=== PATIENT | male | born 1940 | race Two or more races ===

== ENCOUNTER 2019-05-04 23:01 | Inpatient (IN) | payer MEDICARE, OTHER ==
[~2019-05-04] VITALS: Ht 170.2 cm; Wt 63.5 kg
--- NOTE | 2019-05-04 23:08 | NUR ---
BIBS. AGGRESSIVE BEHAVIOR - HIITING STAFF AND OTHER. THROWING STUFF FOR MEDICAL CLEARANCE. ON 5150 FOR DTS/DTO, GRAVELY DISABLED, pt to bed 13, cooperative with staff, pt on monitor, vss, pending md phillips
--- NOTE | 2019-05-04 23:17 | NUR ---
PT ON A HOLD; 214-B
--- NOTE | 2019-05-04 23:25 | NUR ---
urine collected and labs
[2019-05-04 23:31] LABS: APPEARANCE,URINE Clear (CLEAR); BILIRUBIN,URINE Negative (NEGATIVE); BLOOD, URINE Trace-intact Ery/uL (NEGATIVE); COLOR,URINE Yellow (YELLOW); KETONES,URINE Negative (NEGATIVE); LEUKOCYTE ESTERASE ,URINE Negative (NEGATIVE); NITRITE, URINE Negative (NEGATIVE); PROTEIN,URINE >=300 mg/dl (NEGATIVE); UGLUCOSE Negative (NEGATIVE); UROBILINOGEN,URINE 0.2 EU/dL (0.2)
[2019-05-04 23:35] LABS: BASOPHILS % (AUTO) 0.7 % (0.0-2.0); HEMATOCRIT 37 % (39-51); HEMOGLOBIN 12.3 g/dL (13.5-17.5); LYMPHOCYTES # (AUTO) 1.8 /CMM (0.8-4.8); LYMPHOCYTES % (AUTO) 29.5 % (20.0-44.0); MEAN CORPUSCULAR HGB CONC 33 g/dl (31.0-36.0); MEAN CORPUSCULAR VOLUME 89 fL (80-96); MONOCYTES # (AUTO) 0.3 /CMM (0.1-1.30); MONOCYTES % (AUTO) 5.5 % (2.0-12.0); NEUTROPHILS # (AUTO) 3.6 /CMM (1.8-8.9); NEUTROPHILS % (AUTO) 59.3 % (43.0-81.0); PLATELET COUNT (AUTO) 245 /CMM (150-450); RED BLOOD CELL COUNT(AUTO) 4.14 MIL/uL (4.5-6.0)
[2019-05-04 23:42] LABS: BACTERIA,URINE Rare /HPF (None Seen); SQUAMOUS EPITHELIAL CELL,UR Few /HPF (None Seen); WBC,URINE NONE SEEN /HPF (0-3)
[2019-05-04] MEDS ORDERED: FERR325T23 PO (23:46)
[2019-05-04] MEDS ORDERED: ROSU10TA2 PO (23:46)
[2019-05-04] MEDS ORDERED: NIFE-35 PO (23:46)
[2019-05-04] MEDS ORDERED: ISOS30TA6 PO (23:46)
[2019-05-04] MEDS ORDERED: CARV12.52 PO (23:46)
[2019-05-04] MEDS ORDERED: DOCU-141 PO (23:46)
[2019-05-04] MEDS ORDERED: LISI-607 PO (23:46)
[2019-05-04] MEDS ORDERED: PANT20TA2 PO (23:46)
[2019-05-04] MEDS ORDERED: BICA50TA49 PO (23:46)
[2019-05-04] MEDS ORDERED: SITA100T PO (23:46)
[2019-05-04] MEDS ORDERED: TAMS-12 PO (23:46)
[2019-05-04 23:51] LABS: ALANINE AMINOTRANSFERASE 14 U/L (12-78); ALBUMIN 2.9 g/dL (3.4-5.0); ALCOHOL, BLOOD < 3 mg/dL (0-0); ALKALINE PHOSPHATASE 90 U/L (46-116); ASPARTATE AMINOTRANSFERASE 16 U/L (15-37); BILIRUBIN,DIRECT 0.1 mg/dL (0.0-0.2); BILIRUBIN,TOTAL 0.3 mg/dL (0.2-1.0); CALCIUM, SERUM 9.4 mg/dL (8.5-10.1); CARBON DIOXIDE 29 mmol/L (21-32); CHLORIDE 107 mmol/L (98-107); CREATININE 1.4 mg/dL (0.6-1.3); GLUCOSE 136 mg/dL (74-106); POTASSIUM 3.7 mmol/L (3.5-5.1); SODIUM SERUM 140 mmol/L (136-145); TOTAL PROTEIN, SERUM 7.8 g/dL (6.4-8.2); UREA NITROGEN, BLOOD 17 mg/dL (7-18)
[2019-05-04 23:52] LABS: ACETAMINOPHEN < 2 ug/ml (10-30)
--- NOTE | 2019-05-04 23:59 | NUR ---
report given to dafne fofana for aaron; pt will be transported to gps once move packet is ready
--- NOTE | 2019-05-05 01:38 | NUR ---
PT TRANSPORTED TO [facility] VIA .
[2019-05-05 01:45] VITALS: BP 172/89
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
[2019-05-05] MEDS ORDERED: MAGNESIUM HYDROXIDE 30 ML UDC PO PRN (02:00)
[2019-05-05] MEDS ORDERED: ACETAMINOPHEN 325 MG TABLET PO PRN (02:00)
[2019-05-05] MEDS ORDERED: ZOLPIDEM TARTRATE 5 MG TABLET PO PRN (02:00)
[2019-05-05] MEDS ORDERED: MAG HYDROX/AL HYDROX/SIMETH 30 ML UDC PO PRN (02:00)
[2019-05-05] MEDS ORDERED: QUETIAPINE FUMARATE 25 MG TABLET PO PRN (02:00)
[2019-05-05] MEDS ORDERED: BLOOD SUGAR DIAGNOSTIC 1 EACH STRIP IN ONE (02:30)
[2019-05-05] MEDS ORDERED: OLANZAPINE 2.5 MG TABLET PO PRN (02:30)
[2019-05-05] MEDS ORDERED: hydrALAZINE HCL 25 MG TABLET PO PRN (03:00)
--- NOTE | 2019-05-05 03:04 | NUR ---
GPS RN NOTE PATIENT VITAL SIGNS ARE FOLLOWS, B/P 158/64 TEMP 98.1, RES 19, PULSE 65, SPO2 99%. PATIENT ALSO NEEDS A MED RECONCILIATION. PAGED [facility] AND INFORMED DR SANJAY GARCIA MD OF MY FINDINGS. DR SANJAY GARCIA MD ORDERED TO GIVE HYDRALAZINE HCL 25 MG PO Q6HR PRN IF SYSTOLIC BLOOD PRESSURE IS GREATER THAN 150. DR SANJAY GARCIA MD ALSO STATED TO HAVE THE A.M. SHIFT RN TO FOLLOW UP WITH THE A.M. INTEREST TO HAVE THE MED RECONCILIATION COMPLETED. ALL ORDERS NOTED AND CARRIED OUT WILL CONTINUE TO MONITOR THIS PATIENT.
[2019-05-05 08:00] VITALS: BP 148/68
[2019-05-05] MEDS: NIFEdipine XL (30MG) 30 MG TAB PO SCH (10:24)
[2019-05-05] MEDS: LISINOPRIL (5MG) 5 MG TABLET PO SCH (10:24)
[2019-05-05] MEDS: LINAGLIPTIN 5 MG TABLET PO SCH (11:51)
[2019-05-05] MEDS: BICALUTAMIDE 50 MG TABLET PO SCH (12:00)
--- NOTE | 2019-05-05 12:31 | NUR ---
FACILITY CONTACT: JIN contacted [facility] Address: [address] [place] [address] and spoke with Annabel, health and safety coordinator who states pt is currently on a 7 day bed hold but if discharged after the 7 day bed hold then pts acceptance back is contingent on bed availability.
--- NOTE | 2019-05-05 12:35 | NUR ---
FAMILY CONTACT: JIN contacted pts daughter Sadaf [phone] and left a voicemail for callback.
--- NOTE | 2019-05-05 13:05 | NUR ---
FAMILY CONTACT: JIN contacted pts daughter Sadaf [phone] and discussed pts treatment and discharge plan. Per daughter she states that pt has no prior psych history and that since moved to a SNF he has been hospitalized twice for aggressive behavior. Daughter states she feels pt is acting out aggressively due to pt not being able to hear. She states that the SNF he was last in lost his hearing aids and family has not been able to replace them due to his insurance not wanting to cover. She states that she bought him a new hearing aid but it does not work well which frustrates pt and thus making him act out aggressively. Daughter states that pt is and has 7 children. Per daughter she wishes for pt to return to [facility] Address: [address] [place] [address] as pt has been living there for the last 6 months. Daughter agrees with pts discharge and treatment plan.
--- NOTE | 2019-05-05 13:33 | NUR ---
INITIAL DISCHARGE PLAN: Per daughter Sadaf [phone] she wishes for pt to return to [facility] Address: [address] [place] [address] . JIN contacted [facility] Address: [address] [place] [address] and spoke with Annabel recovery coordinator who states pt is currently on a 7 day bed hold but if discharged after the 7 day bed hold then pts acceptance back is contingent on bed availability. JIN will help form a safe and proper discharge in collaboration with .
--- NOTE | 2019-05-05 15:13 | NUR ---
GROUP NOTE: SW attempted to engage pt in group therapy on this present day to discuss "social supports." Pts family was visiting at the time of group and stated that they wanted to spend time with pt. Daughter also stated that pt would not be able to participate as he is extremely hard of hearing and gets easily frustrated and agitated due to this.
[2019-05-05] MEDS: CARVEDILOL 12.5 MG TABLET PO SCH (17:00)
[2019-05-05] MEDS: DOCUSATE SODIUM 100 MG CAPSULE PO SCH (17:00)
[2019-05-05] MEDS: ATORVASTATIN 10 MG TABLET PO SCH (17:13)
--- NOTE | 2019-05-05 19:15 | NUR ---
GPS RN NOTES RECEIVED PT IN BED AWAKE, NO S/S OR COMPLAINTS OF PAIN AT THIS TIME. PT IS DISPLAYING NO S/S OF APPARENT DISTRESS AT THIS TIME. PT BREATHING IS UNLABORED WITH EQUAL RISE AND FALL OF THE CHEST. PT A/O X2-3 ON ROOM AIR SATING 97%. PT COMPLIANT WITH MEDICATION, DISORGANIZED, RESPONDING TO INTERNAL STIMULI, ANXIOUS, AND COOPERATIVE. PT DENIES SUICIDE IDEATIONS AND HOMICIDAL IDEATIONS AT THIS TIME. PT ASSISTED WITH TURNING AND REPOSITIONING Q2 HR AND PRN FOR COMFORT AND CIRCULATION. PT HAS NO NEEDS AT THIS TIME. PT EDUCATED ON THE USE OF THE CALL BLAKELY. PT BED SIDE RAILS UP X2 FOR SAFETY, BED IS LOCKED AND LOW. WILL CONTINUE TO MONITOR Q15 MIN WITH THE HELP OF STAFF TO MAINTAIN SAFETY.
[2019-05-05 20:00] VITALS: BP 144/61
[2019-05-05] MEDS: TAMSULOSIN 0.4 MG CAP.SR.24H PO SCH (21:17)
[2019-05-05] MEDS: QUETIAPINE FUMARATE 25 MG TABLET PO SCH (21:17)
[2019-05-05] MEDS: DIVALPROEX SODIUM 125 MG TABLET.DR PO SCH (21:17)
[2019-05-06 08:00] VITALS: BP 152/66
[2019-05-06] MEDS: LINAGLIPTIN 5 MG TABLET PO SCH (08:16)
[2019-05-06] MEDS: NIFEdipine XL (30MG) 30 MG TAB PO SCH (08:16)
[2019-05-06] MEDS: DOCUSATE SODIUM 100 MG CAPSULE PO SCH ×2 (08:16→17:02)
[2019-05-06] MEDS: PANTOPRAZOLE 40 MG TABLET.DR PO SCH (08:16)
[2019-05-06] MEDS: FERROUS SULFATE (325 MG) 325 MG/TAB TABLET PO SCH (08:16)
[2019-05-06] MEDS: DIVALPROEX SODIUM 125 MG TABLET.DR PO SCH ×3 (08:17→20:52)
[2019-05-06] MEDS: ISOSORBIDE MONONITRATE (30MG) 30 MG TAB.SR.24H PO SCH (08:17)
[2019-05-06] MEDS: LISINOPRIL (5MG) 5 MG TABLET PO SCH (08:17)
[2019-05-06] MEDS: CARVEDILOL 12.5 MG TABLET PO SCH ×2 (08:17→17:02)
[2019-05-06] MEDS: BICALUTAMIDE 50 MG TABLET PO SCH (08:28)
[2019-05-06 16:00] VITALS: BP 144/60
[2019-05-06] MEDS: ATORVASTATIN 10 MG TABLET PO SCH (17:02)
[2019-05-06 19:59] VITALS: BP 138/57
[2019-05-06] MEDS: QUETIAPINE FUMARATE 25 MG TABLET PO SCH (20:52)
[2019-05-06] MEDS: TAMSULOSIN 0.4 MG CAP.SR.24H PO SCH (21:15)
[2019-05-07 07:34] LABS: BASOPHILS % (AUTO) 0.5 % (0.0-2.0); EOSINOPHILS % (AUTO) 5.9 % (0.0-6.0); HEMATOCRIT 34 % (39-51); HEMOGLOBIN 11.3 g/dL (13.5-17.5); LYMPHOCYTES # (AUTO) 1.6 /CMM (0.8-4.8); LYMPHOCYTES % (AUTO) 33.2 % (20.0-44.0); MEAN CORPUSCULAR HGB CONC 33 g/dl (31.0-36.0); MEAN CORPUSCULAR VOLUME 89 fL (80-96); MONOCYTES # (AUTO) 0.3 /CMM (0.1-1.30); MONOCYTES % (AUTO) 6.4 % (2.0-12.0); NEUTROPHILS # (AUTO) 2.6 /CMM (1.8-8.9); PLATELET COUNT (AUTO) 222 /CMM (150-450); RED BLOOD CELL COUNT(AUTO) 3.85 MIL/uL (4.5-6.0); WHITE BLOOD COUNT (AUTO) 4.7 K/uL (4.3-11.0)
[2019-05-07 07:59] LABS: CALCIUM, SERUM 8.7 mg/dL (8.5-10.1); CARBON DIOXIDE 27 mmol/L (21-32); CHLORIDE 109 mmol/L (98-107); CREATININE 1.3 mg/dL (0.6-1.3); GLUCOSE 89 mg/dL (74-106); POTASSIUM 3.8 mmol/L (3.5-5.1); SODIUM SERUM 144 mmol/L (136-145); UREA NITROGEN, BLOOD 15 mg/dL (7-18)
[2019-05-07 08:00] VITALS: BP 150/62
[2019-05-07 08:08] LABS: CHOLESTEROL 147 mg/dL (<200); HDL CHOLESTEROL 33 mg/dL (40-60); LDL 93 mg/dL (0-99); TRIGLYCERIDES 117 mg/dL (30-150)
[2019-05-07] MEDS: DOCUSATE SODIUM 100 MG CAPSULE PO SCH ×2 (08:43→16:35)
[2019-05-07] MEDS: NIFEdipine XL (30MG) 30 MG TAB PO SCH (08:43)
[2019-05-07] MEDS: LISINOPRIL (5MG) 5 MG TABLET PO SCH (08:43)
[2019-05-07] MEDS: ISOSORBIDE MONONITRATE (30MG) 30 MG TAB.SR.24H PO SCH (08:43)
[2019-05-07] MEDS: FERROUS SULFATE (325 MG) 325 MG/TAB TABLET PO SCH (08:43)
[2019-05-07] MEDS: LINAGLIPTIN 5 MG TABLET PO SCH (08:44)
[2019-05-07] MEDS: CARVEDILOL 12.5 MG TABLET PO SCH ×2 (08:44→16:35)
[2019-05-07] MEDS: PANTOPRAZOLE 40 MG TABLET.DR PO SCH (08:44)
[2019-05-07] MEDS: DIVALPROEX SODIUM 125 MG TABLET.DR PO SCH ×3 (08:47→20:40)
[2019-05-07] MEDS: BICALUTAMIDE 50 MG TABLET PO SCH (08:51)
--- NOTE | 2019-05-07 14:28 | NUR ---
RN-CO: DR Jacobson made aware that daughter "Lucita" wants to discuss plan of care.
[2019-05-07 16:00] VITALS: BP 145/78
[2019-05-07] MEDS: ATORVASTATIN 10 MG TABLET PO SCH (17:21)
[2019-05-07 19:45] VITALS: BP 150/58
[2019-05-07 20:38] VITALS: BP 133/52
[2019-05-07] MEDS: QUETIAPINE FUMARATE 25 MG TABLET PO SCH (20:40)
[2019-05-07] MEDS: TAMSULOSIN 0.4 MG CAP.SR.24H PO SCH (21:13)
[2019-05-08] MEDS: PANTOPRAZOLE 40 MG TABLET.DR PO SCH (07:37)
[2019-05-08 08:00] VITALS: BP 149/71
[2019-05-08] MEDS: NIFEdipine XL (30MG) 30 MG TAB PO SCH (08:33)
[2019-05-08] MEDS: DOCUSATE SODIUM 100 MG CAPSULE PO SCH ×2 (08:34→16:46)
[2019-05-08] MEDS: DIVALPROEX SODIUM 125 MG TABLET.DR PO SCH ×3 (08:34→20:48)
[2019-05-08] MEDS: LISINOPRIL (5MG) 5 MG TABLET PO SCH (08:34)
[2019-05-08] MEDS: FERROUS SULFATE (325 MG) 325 MG/TAB TABLET PO SCH (08:34)
[2019-05-08] MEDS: LINAGLIPTIN 5 MG TABLET PO SCH (08:34)
[2019-05-08] MEDS: CARVEDILOL 12.5 MG TABLET PO SCH ×2 (08:34→16:47)
[2019-05-08] MEDS: ISOSORBIDE MONONITRATE (30MG) 30 MG TAB.SR.24H PO SCH (08:35)
[2019-05-08] MEDS: BICALUTAMIDE 50 MG TABLET PO SCH (08:41)
[2019-05-08 16:00] VITALS: BP 144/61
[2019-05-08] MEDS: ATORVASTATIN 10 MG TABLET PO SCH (17:34)
[2019-05-08 20:32] VITALS: BP 149/70
[2019-05-08] MEDS: QUETIAPINE FUMARATE 25 MG TABLET PO SCH (20:48)
[2019-05-08] MEDS: TAMSULOSIN 0.4 MG CAP.SR.24H PO SCH (21:10)
[2019-05-08 22:00] VITALS: BP 149/71
[2019-05-09] MEDS: PANTOPRAZOLE 40 MG TABLET.DR PO SCH (07:16)
[2019-05-09 07:19] LABS: VALPROIC ACID 33 ug/mL (50-100)
[2019-05-09 07:22] LABS: ALANINE AMINOTRANSFERASE 10 U/L (12-78); ASPARTATE AMINOTRANSFERASE 12 U/L (15-37)
[2019-05-09 08:00] VITALS: BP 151/75
[2019-05-09] MEDS: BICALUTAMIDE 50 MG TABLET PO SCH (08:24)
[2019-05-09] MEDS: DIVALPROEX SODIUM 125 MG TABLET.DR PO SCH ×3 (08:25→21:55)
[2019-05-09] MEDS: DOCUSATE SODIUM 100 MG CAPSULE PO SCH ×2 (08:25→16:57)
[2019-05-09] MEDS: LISINOPRIL (5MG) 5 MG TABLET PO SCH (08:25)
[2019-05-09] MEDS: FERROUS SULFATE (325 MG) 325 MG/TAB TABLET PO SCH (08:25)
[2019-05-09] MEDS: LINAGLIPTIN 5 MG TABLET PO SCH (08:25)
[2019-05-09] MEDS: CARVEDILOL 12.5 MG TABLET PO SCH ×2 (08:26→16:58)
[2019-05-09] MEDS: NIFEdipine XL (30MG) 30 MG TAB PO SCH ×2 (08:26→16:57)
[2019-05-09] MEDS: ISOSORBIDE MONONITRATE (30MG) 30 MG TAB.SR.24H PO SCH (08:26)
[2019-05-09 16:00] VITALS: BP 143/52
[2019-05-09] MEDS: ATORVASTATIN 10 MG TABLET PO SCH (17:29)
[2019-05-09 20:15] VITALS: BP 139/56
[2019-05-09] MEDS: QUETIAPINE FUMARATE 25 MG TABLET PO SCH (21:55)
[2019-05-09] MEDS: TAMSULOSIN 0.4 MG CAP.SR.24H PO SCH (21:59)
[2019-05-10 06:37] LABS: BASOPHILS % (AUTO) 0.4 % (0.0-2.0); EOSINOPHILS % (AUTO) 5.4 % (0.0-6.0); HEMATOCRIT 33 % (39-51); HEMOGLOBIN 11.2 g/dL (13.5-17.5); LYMPHOCYTES # (AUTO) 1.6 /CMM (0.8-4.8); LYMPHOCYTES % (AUTO) 29.5 % (20.0-44.0); MEAN CORPUSCULAR HGB CONC 34 g/dl (31.0-36.0); MEAN CORPUSCULAR VOLUME 89 fL (80-96); MONOCYTES # (AUTO) 0.3 /CMM (0.1-1.30); MONOCYTES % (AUTO) 6.5 % (2.0-12.0); NEUTROPHILS # (AUTO) 3.1 /CMM (1.8-8.9); NEUTROPHILS % (AUTO) 58.2 % (43.0-81.0); PLATELET COUNT (AUTO) 187 /CMM (150-450); RED BLOOD CELL COUNT(AUTO) 3.71 MIL/uL (4.5-6.0); WHITE BLOOD COUNT (AUTO) 5.3 K/uL (4.3-11.0)
[2019-05-10 06:56] LABS: ALANINE AMINOTRANSFERASE 8 U/L (12-78); ALBUMIN 2.4 g/dL (3.4-5.0); ALKALINE PHOSPHATASE 66 U/L (46-116); ASPARTATE AMINOTRANSFERASE 11 U/L (15-37); BILIRUBIN,TOTAL 0.6 mg/dL (0.2-1.0); CALCIUM, SERUM 8.5 mg/dL (8.5-10.1); CARBON DIOXIDE 29 mmol/L (21-32); CHLORIDE 106 mmol/L (98-107); CREATININE 1.4 mg/dL (0.6-1.3); GLUCOSE 73 mg/dL (74-106); MAGNESIUM 1.8 mg/dL (1.8-2.4); PHOSPHORUS 3.5 mg/dL (2.5-4.9); POTASSIUM 3.5 mmol/L (3.5-5.1); SODIUM SERUM 141 mmol/L (136-145); TOTAL PROTEIN, SERUM 6.5 g/dL (6.4-8.2); UREA NITROGEN, BLOOD 13 mg/dL (7-18)
[2019-05-10 08:00] VITALS: BP 153/63
[2019-05-10] MEDS: PANTOPRAZOLE 40 MG TABLET.DR PO SCH (08:30)
[2019-05-10] MEDS: NIFEdipine XL (30MG) 30 MG TAB PO SCH ×2 (08:30→16:05)
[2019-05-10] MEDS: FERROUS SULFATE (325 MG) 325 MG/TAB TABLET PO SCH (08:30)
[2019-05-10] MEDS: ISOSORBIDE MONONITRATE (30MG) 30 MG TAB.SR.24H PO SCH (08:30)
[2019-05-10] MEDS: LISINOPRIL (5MG) 5 MG TABLET PO SCH (08:30)
[2019-05-10] MEDS: LINAGLIPTIN 5 MG TABLET PO SCH (08:30)
[2019-05-10] MEDS: CARVEDILOL 12.5 MG TABLET PO SCH ×2 (08:31→16:05)
[2019-05-10] MEDS: DOCUSATE SODIUM 100 MG CAPSULE PO SCH ×2 (08:31→16:04)
[2019-05-10] MEDS: BICALUTAMIDE 50 MG TABLET PO SCH (08:35)
[2019-05-10] MEDS: DIVALPROEX SODIUM 125 MG TABLET.DR PO SCH ×3 (08:35→21:23)
[2019-05-10 16:00] VITALS: BP 148/59
[2019-05-10] MEDS: ATORVASTATIN 10 MG TABLET PO SCH (17:22)
--- NOTE | 2019-05-10 18:44 | NUR ---
Dr. Jacobson called the daughter Sadaf and nobody's answering and can't leave a message due voice mail is full and psychiatrist called also Luicta and nobody's answering and left a message.
[2019-05-10 20:15] VITALS: BP 157/60
[2019-05-10] MEDS: QUETIAPINE FUMARATE 25 MG TABLET PO SCH (21:22)
[2019-05-10] MEDS: TAMSULOSIN 0.4 MG CAP.SR.24H PO SCH (21:23)
[2019-05-10 23:38] VITALS: BP 138/62
[2019-05-11 08:00] VITALS: BP 162/86
[2019-05-11] MEDS: PANTOPRAZOLE 40 MG TABLET.DR PO SCH (08:57)
[2019-05-11] MEDS: FERROUS SULFATE (325 MG) 325 MG/TAB TABLET PO SCH (08:57)
[2019-05-11] MEDS: DOCUSATE SODIUM 100 MG CAPSULE PO SCH ×2 (08:57→17:28)
[2019-05-11] MEDS: ISOSORBIDE MONONITRATE (30MG) 30 MG TAB.SR.24H PO SCH (08:57)
[2019-05-11] MEDS: LISINOPRIL (5MG) 5 MG TABLET PO SCH (08:58)
[2019-05-11] MEDS: LINAGLIPTIN 5 MG TABLET PO SCH (08:58)
[2019-05-11] MEDS: DIVALPROEX SODIUM 125 MG TABLET.DR PO SCH ×3 (08:58→21:01)
[2019-05-11] MEDS: NIFEdipine XL (30MG) 30 MG TAB PO SCH ×2 (08:58→17:29)
[2019-05-11] MEDS: BICALUTAMIDE 50 MG TABLET PO SCH (08:59)
[2019-05-11] MEDS: CARVEDILOL 12.5 MG TABLET PO SCH ×2 (08:59→17:29)
--- NOTE | 2019-05-11 15:33 | NUR ---
Group Note: SW encouraged pt to participate in group on 05/11/19 at 2pm discussing discharge planning. Pt stated that he cannot attend the group because he is hard of hearing and stated that he does not like talking to others when they have to shout or he just cannot hear them. SW stated that he is going to be discharged back to his SNF soon and the pt thanked the SW. Pt stated that he wanted to go back and be in his room with all of his belongings.
--- NOTE | 2019-05-11 16:17 | NUR ---
RN-CO: Per Dr Jacobson, he called daughters Lucita and Sadaf 05/10/19 at 6:39 pm and 6: 40 pm and he left a message in the mail box.
[2019-05-11 16:25] VITALS: BP 144/64
[2019-05-11] MEDS: ATORVASTATIN 10 MG TABLET PO SCH (17:30)
[2019-05-11 20:00] VITALS: BP 154/67
[2019-05-11 20:18] VITALS: BP 135/69
[2019-05-11] MEDS: TAMSULOSIN 0.4 MG CAP.SR.24H PO SCH (21:01)
[2019-05-11] MEDS: QUETIAPINE FUMARATE 25 MG TABLET PO SCH (21:02)
[2019-05-12] MEDS: PANTOPRAZOLE 40 MG TABLET.DR PO SCH (07:55)
[2019-05-12 08:02] VITALS: BP 126/64
[2019-05-12] MEDS: BICALUTAMIDE 50 MG TABLET PO SCH (08:02)
[2019-05-12] MEDS: DOCUSATE SODIUM 100 MG CAPSULE PO SCH ×2 (08:02→16:59)
[2019-05-12] MEDS: NIFEdipine XL (30MG) 30 MG TAB PO SCH ×2 (08:03→16:59)
[2019-05-12] MEDS: DIVALPROEX SODIUM 125 MG TABLET.DR PO SCH ×3 (08:03→20:34)
[2019-05-12] MEDS: ISOSORBIDE MONONITRATE (30MG) 30 MG TAB.SR.24H PO SCH (08:03)
[2019-05-12] MEDS: FERROUS SULFATE (325 MG) 325 MG/TAB TABLET PO SCH (08:04)
[2019-05-12] MEDS: LISINOPRIL (5MG) 5 MG TABLET PO SCH (08:04)
[2019-05-12] MEDS: CARVEDILOL 12.5 MG TABLET PO SCH ×2 (08:04→16:59)
[2019-05-12] MEDS: LINAGLIPTIN 5 MG TABLET PO SCH (08:04)
[2019-05-12 16:00] VITALS: BP 127/65
[2019-05-12] MEDS: ATORVASTATIN 10 MG TABLET PO SCH (17:00)
[2019-05-12 20:29] VITALS: BP 138/68
[2019-05-12] MEDS: QUETIAPINE FUMARATE 25 MG TABLET PO SCH (20:34)
[2019-05-12] MEDS: TAMSULOSIN 0.4 MG CAP.SR.24H PO SCH (21:11)
[2019-05-13 07:10] LABS: VALPROIC ACID 55 ug/mL (50-100)
[2019-05-13 07:30] LABS: ALANINE AMINOTRANSFERASE 9 U/L (12-78); ASPARTATE AMINOTRANSFERASE 14 U/L (15-37)
[2019-05-13 08:00] VITALS: BP 149/61
[2019-05-13] MEDS: PANTOPRAZOLE 40 MG TABLET.DR PO SCH (08:20)
[2019-05-13] MEDS: LINAGLIPTIN 5 MG TABLET PO SCH (08:21)
[2019-05-13] MEDS: DOCUSATE SODIUM 100 MG CAPSULE PO SCH ×2 (08:21→18:14)
[2019-05-13] MEDS: FERROUS SULFATE (325 MG) 325 MG/TAB TABLET PO SCH (08:21)
[2019-05-13] MEDS: NIFEdipine XL (30MG) 30 MG TAB PO SCH ×2 (08:22→18:14)
[2019-05-13] MEDS: DIVALPROEX SODIUM 125 MG TABLET.DR PO SCH ×3 (08:22→21:12)
[2019-05-13] MEDS: LISINOPRIL (5MG) 5 MG TABLET PO SCH (08:22)
[2019-05-13] MEDS: CARVEDILOL 12.5 MG TABLET PO SCH ×2 (08:23→18:14)
[2019-05-13] MEDS: ISOSORBIDE MONONITRATE (30MG) 30 MG TAB.SR.24H PO SCH (08:23)
[2019-05-13] MEDS: BICALUTAMIDE 50 MG TABLET PO SCH (08:40)
[2019-05-13 16:00] VITALS: BP 138/72
[2019-05-13] MEDS: ATORVASTATIN 10 MG TABLET PO SCH (18:14)
[2019-05-13 20:00] VITALS: BP 152/61
[2019-05-13] MEDS: TAMSULOSIN 0.4 MG CAP.SR.24H PO SCH (21:12)
[2019-05-13] MEDS: QUETIAPINE FUMARATE 25 MG TABLET PO SCH (21:12)
[2019-05-14 08:00] VITALS: BP 156/64
[2019-05-14] MEDS: FERROUS SULFATE (325 MG) 325 MG/TAB TABLET PO SCH (08:54)
[2019-05-14] MEDS: CARVEDILOL 12.5 MG TABLET PO SCH ×2 (08:54→17:56)
[2019-05-14] MEDS: DOCUSATE SODIUM 100 MG CAPSULE PO SCH ×2 (08:54→17:56)
[2019-05-14] MEDS: DIVALPROEX SODIUM 125 MG TABLET.DR PO SCH ×3 (08:54→21:06)
[2019-05-14] MEDS: LINAGLIPTIN 5 MG TABLET PO SCH (08:54)
[2019-05-14] MEDS: ISOSORBIDE MONONITRATE (30MG) 30 MG TAB.SR.24H PO SCH (08:54)
[2019-05-14] MEDS: NIFEdipine XL (30MG) 30 MG TAB PO SCH ×2 (08:54→17:56)
[2019-05-14] MEDS: PANTOPRAZOLE 40 MG TABLET.DR PO SCH (08:55)
[2019-05-14] MEDS: LISINOPRIL (5MG) 5 MG TABLET PO SCH (08:55)
[2019-05-14] MEDS: BICALUTAMIDE 50 MG TABLET PO SCH (08:59)
[2019-05-14 16:00] VITALS: BP 136/66
[2019-05-14] MEDS: ATORVASTATIN 10 MG TABLET PO SCH (17:58)
[2019-05-14 20:34] VITALS: BP 147/58
[2019-05-14] MEDS: TAMSULOSIN 0.4 MG CAP.SR.24H PO SCH (21:06)
[2019-05-14] MEDS: QUETIAPINE FUMARATE 25 MG TABLET PO SCH (21:06)
[2019-05-15 08:00] VITALS: BP 129/60
[2019-05-15] MEDS: DOCUSATE SODIUM 100 MG CAPSULE PO SCH (08:27)
[2019-05-15] MEDS: ISOSORBIDE MONONITRATE (30MG) 30 MG TAB.SR.24H PO SCH (08:28)
[2019-05-15] MEDS: DIVALPROEX SODIUM 125 MG TABLET.DR PO SCH (08:29)
[2019-05-15] MEDS: LISINOPRIL (5MG) 5 MG TABLET PO SCH (08:29)
[2019-05-15 08:30] VITALS: BP 129/60
[2019-05-15] MEDS: PANTOPRAZOLE 40 MG TABLET.DR PO SCH (08:30)
[2019-05-15] MEDS: FERROUS SULFATE (325 MG) 325 MG/TAB TABLET PO SCH (08:30)
[2019-05-15] MEDS: CARVEDILOL 12.5 MG TABLET PO SCH (08:30)
[2019-05-15] MEDS: NIFEdipine XL (30MG) 30 MG TAB PO SCH (08:30)
[2019-05-15] MEDS: LINAGLIPTIN 5 MG TABLET PO SCH (08:31)
[2019-05-15] MEDS: BICALUTAMIDE 50 MG TABLET PO SCH (08:35)
--- NOTE | 2019-05-15 08:38 | NUR ---
DISCHARGE NOTE: Pt will be discharged at 2:00pm via [facility] to [facility] Address: [address] [place] [address] . Pts daughter Sadaf [phone] has been notified and agrees with discharge. Pts mood is euthymic with congruent affect. Pt denied suicidal/homicidal ideation and denied visual/auditory hallucinations. Pt will be under the care of Psychiatrist: Dr. Savage Jacobson Address: [place] [address] and Information Specialist: Dr. Jone Berger [address] [facility] [address] [place] [id number] . The multidisciplinary exit care form was done, printed, signed, and given to the patient. Addendum: 05/15/19 at 1328 by ATILIO ABDI Pt will be discharged at 2:00pm via [facility] to [facility] Address: [address] [place] [address] . Pts daughter Sadaf agreed with discharge to this facility.
--- NOTE | 2019-05-15 10:12 | NUR ---
GPS/RN-NOTES RECEIVED T.O DISCHARGE ORDER FROM DR. GUTIERREZ.NOTED AND CARRIED OUT.
--- NOTE | 2019-05-15 12:02 | NUR ---
FACILITY CONTACT: JIN contacted [facility] Address: [address] [place] [address] and spoke with Graciela, flight coordinator who stated pt is not being accepted to their facility and is being transferred to their sister facility [facility] Address: [address] [place] [address] . JIN stated that on Wednesday she spoke with Annabel flight coordinator who agreed with pt being discharged to their facility on this present day. JIN informed Graciela that pts daughter Sadaf is not in agreement with pt being discharged to a different facility. Graciela stated that she would be calling daughter to inform her.
--- NOTE | 2019-05-15 12:10 | NUR ---
FAMILY CONTACT: JIN contacted pts daughter Sadaf [phone] and informed her that [facility] Address: [address], [place] [address] is not accepting pt and want to transfer him to their sister facility. Sadaf stated that the facility has not called her to inform her and that she refused for pt to be transferred without an explanation from the facility staff. Sadaf also stated that she needed to tour the facility before agreeing for a transfer.
--- NOTE | 2019-05-15 14:00 | NUR ---
RN NOTE: MULTIPLE ATTEMPTS MADE AT PROVIDING REPORT TO [facility]. SPOKE WITH KARTIK BETH. STATED HE WOULD CALL ME BACK. ATTEMPTED TWO OTHER TIMES WITHOUT SUCCESS.
--- NOTE | 2019-05-15 14:45 | NUR ---
RESEARCH AND INSIGHTS EXECUTIVE NOTE:79 YEAR OLD MALE DISCHARGED TO [facility] IN STABLE CONDITION. COMPLIANT WITH MEDICATIONS, COOPERATIVE WITH TREATMENT PLANS, PATIENT DENIES SI/HI AND INSTRUCTED TO GO TO THE CLOSEST ER IF DEVELOPING SI/HI. BEHAVIOR IMPROVED, PSYCHIATRIC TREATMENT PLANS MET, MEDICAL PLAN AND COPY PROVIDED. RETURNED PERSONAL BELONGINGS TO PATIENT . MEDICATIONS RECONCILED WITH DR. GUTIERREZ AND DR. GARCIA. REPORT ATTEMPTED TO BE PROVIDED TO KARTIK BETH AT SNF. PT SIGNED DISCHARGE PAPERWORK. SKIN INTACT ON ADMIT AND DISCHARGE. PT LEFT THE UNIT AT 1445 VIA GURNEY WITH EMS AND VIA AMBULANCE
== END 2019-05-15 14:45 | DRG 885 ==
LOC: ER 23:13 → GPS 05-05 01:05
PROVIDERS: ADMIT Psychiatry & Neurology Psychiatry; ATTEND Internal Medicine
DX: F39 Unspecified mood [affective] disorder (principal); F01.51 Vascular dementia, unspecified severity, with behavioral disturbance; N17.9 Acute kidney failure, unspecified; G93.41 Metabolic encephalopathy; F29 Unspecified psychosis not due to a substance or known physiological condition; F41.9 Anxiety disorder, unspecified; Z86.73 Personal history of transient ischemic attack (TIA), and cerebral infarction without residual deficits; Z85.46 Personal history of malignant neoplasm of prostate; Z79.899 Other long term (current) drug therapy; Z79.84 Long term (current) use of oral hypoglycemic drugs; N40.0 Benign prostatic hyperplasia without lower urinary tract symptoms; E78.5 Hyperlipidemia, unspecified; E11.9 Type 2 diabetes mellitus without complications; F03.90 Unspecified dementia, unspecified severity, without behavioral disturbance, psychotic disturbance, mood disturbance, and anxiety; F32.9 Major depressive disorder, single episode, unspecified; Z73.6 Limitation of activities due to disability; C61 Malignant neoplasm of prostate; I25.10 Atherosclerotic heart disease of native coronary artery without angina pectoris; I10 Essential (primary) hypertension
CPT/HCPCS: 36415; 80048-TC; 80053-TC; 80061-TC; 80076-TC; 80164-TC; 80305; 81000-TC; 82962-TC; 83735-TC; 84100-TC; 84450-TC; 84460-TC; 85025-TC; 87081-TC; 97116-TC; 97530-TC; G0480